=== PATIENT | male | born 1960 | race Caucasian/White ===

== ENCOUNTER 2017-12-02 11:47 | Outpatient (CLI) | payer MEDICARE, SELFPAY ==
[2017-12-02] VITALS (7 sets, daily range): BP systolic 103–127; BP diastolic 69–89; PULSE 66–80; RESP 16; TEMP 36.2–36.9; O2SAT 94–97; BMI 27.2
--- NOTE | 2017-12-02 | IMM_PTH ---
PATIENT: ELLIE MORGAN LOC: EN U#:[id number] AGE/SX: 57/M ROOM: RE12/02/[address]: Dr. Aneudy Moyer MD : 1960 BED: DIS: 12/02/2017 SPEC #: [id number] RECD: 12/03/17 15:31 STATUS: JESENIA TOM #: [id number] DANIEL: 12/02/17 00:[address]: Aneudy Moyer DEPT: IMMUNOHISTOCHEMISTRY RECD BY: Molly Matos ENTERED: 12/03/17 15:31 SP TYPE: IMMUNO OTHR DR: Dr. Joseph Oliveira MD Tissues: A - Stomach, NOS Procedures: H Pylori (initial) PHYSICIAN & INSTITUTION [place] [address] SPECIMEN INFORMATION: Tissue Source: A ? Antral biopsy Clinical Info: History of esophageal cancer; family history colon cancer Specimen Number: [id number] CPT code: 88218 METHODOLOGY: Deparaffinized sections of prefer/formalin-fixed tissue or PAP/DQ stained slides are incubated with monoclonal/polyclonal antibodies/oligonucleotide probes. Localization is made via biotin free immunoperoxidase method. Appropriate controls are performed and reacted as expected. Results on target cell population are indicated in the following table: RESULTS: ANTIBODY / CLONE RESULT Block A H Pylori (polyclonal) negative These tests were developed and their performance characteristics determined by [facility]. They may not have been cleared or approved by the U.S. Food and Drug Administration. The FDA has determined that such clearance or approval is not necessary. INTERPRETATION: A. Antral biopsy: Negative for Helicobacter pylori organisms. AM:melba 12/04/17
--- NOTE | 2017-12-02 | GASB_PTH ---
PATIENT: ELLIE MORGAN LOC: EN U#:[id number] AGE/SX: 57/M ROOM: RE12/02/[address]: Dr. Aneudy Moyer MD : 1960 BED: DIS: 12/02/2017 SPEC #: [id number] RECD: 12/02/17 14:52 STATUS: JESENIA TOM #: [id number] DANIEL: 12/02/17 00:[address]: Aneudy Moyer DEPT: SURGICAL PATHOLOGY RECD BY: Ras Guajardo ENTERED: 12/02/17 14:53 SP TYPE: Gastric Bx OTHR DR: Dr. Joseph Oliveira MD Tissues: A - Gastric mucous membrane B - Gastric mucous membrane C - Transverse colon D - Rectum, NOS Procedures: Special Stain Group I Surgery Specimen Level IV GMS Stain (control) HEADER OPERATION: EGD and colonoscopy PRE-OP DIAGNOSIS: History of esophageal cancer; family history of colon cancer TISSUE SUBMITTED: A ? Antral biopsy, B ? Anastomosis biopsy, C ? Mid transverse colon polyp, D ? Rectal polyps MICROSCOPIC DIAGNOSIS A. Gastric antrum, biopsy: Gastritis. B. Anastomotic site, biopsy: Fragments of benign squamous mucosa with focal acute inflammation. Negative for fungal organisms. C. Mid transverse colon polyp, biopsy: Tubular adenoma. D. Rectal polyps, biopsy: Fragments of tubular adenoma. AM:melba 12/03/17 COMMENT A. The results of immunohistochemistry for Helicobacter pylori will be reported separately ([id number]). B. GMS stain with matched control was used in the evaluation of this case. MICROSCOPIC DESCRIPTION Slides are reviewed. A. Sections show small collections and groups of plasma cells in the mucosa. Active inflammation is not present. These findings are consistent with mild chronic gastritis. GROSS DESCRIPTION A - Received in fixative is one container labeled with the patient's name and designated antral biopsy. The specimen consists of one irregular fragment of light jauregui soft tissue that measures 0.6 x 0.2 x 0.1 cm. The specimen is totally submitted in one cassette. B - Received in fixative is one container labeled with the patient's name and designated anastomosis biopsy. The specimen consists of two irregular fragments of light jauregui soft tissue that in aggregate measure 0.5 x 0.2 x 0.1 cm. The specimen is totally submitted in one cassette. C - Received in fixative is one container labeled with the patient's name and designated mid transverse colon. The specimen consists of one irregular fragment of light jauregui soft tissue that measures 0.6 x 0.3 x 0.1 cm. The specimen is totally submitted in one cassette. D - Received in fixative is one container labeled with the patient's name and designated rectal polyps. The specimen consists of multiple irregular fragments of light jauregui soft tissue that in aggregate measure 0.7 x 0.6 x 0.2 cm. The specimen is totally submitted in one cassette. / AM:melba 12/02/17 TC:3 CPT: 33659 x4, 36705
--- NOTE | 2017-12-02 12:22 | PCM.HP.BLA ---
History and Physical Date of Admission: 12/02/17 HISTORY AND PHYSICAL ? Lg Magdaleno 1960 ? REFERRING PHYSICIAN: ~~Joseph Oliveira MD ? CHIEF COMPLAINT: ~~colon consult ? HPI: The patient is a 57 year old male referred for endoscopy. ~Lg notes a personal history of colon polyps on several prior endoscopies. ~He states his last colonoscopy was 3-4 years ago at an outside facility with polyps found at that time, we do not currently have access to these records. ~The patient additionally has a personal history of esophageal cancer and states that in 2012 he underwent esophagectomy at [facility]. ~~He denies having any follow-up endoscopy since that time. ~~He notes a history of~heme positive stool test in the past but denies any visible blood in stools, dark stools or abdominal pain. ~Currently he notes reflux symptoms occasionally when laying flat. ~ ? In addition to history of esophageal cancer and colonic polyps, patient's past medical history is significant for hypertension, hyperlipidemia, diabetes mellitus and emphysema. ~He follows with Dr. Oliveira for his chronic medical conditions. ~He denies any cardiac issues. ~He denies chest pain or recent hospitalizations. ~Denies problems with sedation in the past. ? ? PAST MEDICAL HISTORY PAST MEDICAL HISTORY Diagnosis Date DM (diabetes mellitus) (HCC) ? HTN (hypertension) ? ? PAST SURGICAL HISTORY No past surgical history on file. ? ? CURRENT MEDICATIONS ? Current Outpatient Prescriptions: peg 3350-Electrolytes (GOLYTELY) 236-22.74-6.74 -5.86 gram suspension Take 4 L by mouth one time only. pioglitazone (ACTOS) 30 mg tablet Take 1 tablet by mouth once daily. tiotropium bromide (SPIRIVA RESPIMAT) 2.5 mcg/actuation mist Inhale 2 Puffs as instructed once daily. Inhale two puffs once daily. valsartan (DIOVAN) 80 mg tablet Take 1 tablet by mouth once daily. albuterol HFA (VENTOLIN HFA) 90 mcg/actuation inhaler Inhale 2 Puffs as instructed every 4 hours as needed for Wheezing/Shortness of Breath. Lovastatin 40 mg tablet Take 1 tablet by mouth daily at bedtime. For cholesterol. Nebulizer NEBULIZER FOR HOME USE. ~DX: J43.9 albuterol (PROVENTIL) 2.5 mg /3 mL (0.083 %) nebulizer solution Use 3 mL via nebulizer every 6 hours as needed for Wheezing/Shortness of Breath. Use over 5-15minutes. ? No current facility-administered medications for this visit. ? ALLERGIES: Review of patient's allergies indicates no known allergies. ? PERSONAL HISTORY: SOCIAL HISTORY Social History ~~Marital status: ~~~~~~~~~~~~Spouse name: ~~~~~~~~~~~~~~~~~~ ~~Years of education: ~~~~~~~~~~~~~~~~Number of children: ~~~~~~~~~~ ? Social History Main Topics ~~Smoking status: Current Every Day Smoker ~~~~~~~~~~~~~~~~~~~~~~~~~~~~~~~~~~~~~~~~~~~~~ ~~~~~Packs/day: 0.00 ~~~~~Years: 0.00 ~~~ ~~~~~Types: Cigars ~~Smokeless status: Never Used ~~~~~~~~~~~~~~~~~~~ ~~Alcohol use: No ~~~~~~~~~ ~~Drug use: No ~~~~~~~~~ ~~Sexual activity: Yes ~~~~~~~~~~~~~~Partners with: Female ? ? FAMILY HISTORY: FAMILY HISTORY FAMILY HISTORY Problem Relation Age of Onset Kidney Disease Mother 60 ? ? kidney failure Colon Cancer Father 60 ? ? dx with colon cancer at 60 years old Diabetes Maternal Grandmother ? Diabetes Paternal Grandmother ? ? REVIEW OF SYMPTOMS: ~~The review of systems data was entered by the nurse and reviewed by me ? Nursing Notes: Mireya Barrios LPN ~09/30/2017 ~4:15 PM ~Signed REVIEW OF SYSTEMS: ~~~~~General:~~~The patient denies fatigue, denies weight loss, denies weight gain, denies feeling hot, and denies feelings of cold. ~~~~~Eyes: ~The patient denies glaucoma, denies eye injury/surgery, wears glasses or contacts. ~~~~~Ear/Nose/Throat: ~The patient NOTES allergies, NOTES hayfever, denies ear infections, and denies bloody noses. ~~~~~Cardiovascular: ~The patient denies chest pain, denies heart disease, denies high blood pressure,denies cardiac stent, denies prior heart attack, denies irregular heart beat, denies high cholesterol, ~denies poor circulation, denies heart failure, other cardiac issues, denies claudication, denies cold feet, denies peripheral arterial stent. ~~~~~Respiratory: ~The patient denies tuberculosis, NOTES pneumonia, denies frequent cough, denies pulmonary embolism, NOTES shortness of breath, and denies coughing up blood. ~~~~~Gastrointestinal: ~The patient denies difficulty swallowing, denies acid reflux, denies ulcers, denies vomiting, denies jaundice/hepatitis, denies gallbladder problems, denies black or tarry stools, denies hemorrhoids, denies bleeding from rectum, denies diverticulitis, denies constipation, NOTES diarrhea, denies loss of stool control, and denies hernias. ~~~~~Kidney/Bladder: ~The patient denies kidney stones, denies urine infections, and denies bloody urine. ~~~~~Skin: ~The patient denies a history of skin cancer, denies bleeding/changing moles, and denies a history of skin rash. ~~~~~Neurologic: ~The patient denies a history of epilepsy/convulsions, NOTES headaches, denies head/spinal injuries, and denies stroke/TIA. ~~~~~Psychiatric: ~The patient denies psychiatric medications, denies depression, and denies voices, denies substance abuse. ~~~~~Endocrine: ~The patient denies thyroid disorders, NOTES diabetes, and denies hormonal problems. ~~~~~Hematologic: ~The patient denies a history of bruising, denies bleeding, and denies anemia, denies blood clots. ~~~~~Infections: ~The patient NOTES a history of measles and mumps, denies rheumatic fever, and denies sexually transmitted diseases. ~~~~~Musculoskeletal: ~The patient NOTES back pain/injury, denies back problems, NOTES sciatica, denies knee/foot trouble, denies arthritis, or denies gout. ? ? When was patient's last Mammogram screening? N/A ? ~Last Colonoscopy: ~2012 ? Mireya Anaya PA-C ? ?? PHYSICAL EXAMINATION: ? General: ~The patient is 57 year old male, well nourished, well hydrated in no acute distress. ~The patient is oriented to time, place, and person. ? VITALS: Blood pressure 160/70, pulse 100, weight 86.2 kg (190 lb).~Body mass index is 28.06 kg/(m^2).~ ? HEENT: ~Normal cephalic, ataumatic, pupils are equally round, sclera are anicteric, mucous membranes are moist, oropharynx is clear. ~Neck has no masses, asymmetry or lymphadenopathy. ~ ? Respiratory: ~Clear to auscultation and percussion. ~Normal respiratory excursion and pattern. ? Cardiac: ~Examination is regular rate and rhythm. ? Abdominal exam: ~Soft, nontender, ~with no palpable masses. ~No hepatosplenomegaly. ~No palpable hernias. ? Rectal exam: exam deferred ? Extremities: ~no clubbing, cyanosis or edema. ~No adenopathy. ? Other: ? LABORATORY VALUES: As Noted ? RADIOLOGIC STUDIES: ~As Noted ? ? Assessment ~ IMPRESSION: encounter for high-risk screening colonoscopy due to personal history of colonic polyps. ~S/p esophageal resection for esophageal cancer, recommend surveillance upper endoscopy ? PLAN: ~I will plan for upper and lower endoscopy with MAC.~~~We discussed the risks and benefits of the planned endoscopy. ~I have informed the patient that complications can occur including failure to complete the endoscopy and perforation. ~The patient had the opportunity to ask questions concerning the planned endoscopy. ~My staff has also explained the procedure to the patient in understandable terms and has given the patient printed material concerning the procedure. ~The patient freely consents to surgery. ? Records requested from prior endoscopy as well as operative report from 2013 for review ? I plan to use golytely bowel preparation for endoscopy ? I plan for monitored anesthetic care. ? Diagnoses: (Z85.01) History of esophageal cancer ~(primary encounter diagnosis) (J43.9) Pulmonary emphysema, unspecified emphysema type (HCC) (E11.8) Type 2 diabetes mellitus with complication, unspecified custodial insulin use status (HCC) (E78.5) Hyperlipidemia, unspecified hyperlipidemia type (Z86.010) History of colonic polyps (Z12.11) Encounter for screening for malignant neoplasm of colon ? My findings have been communicated to Dr. Oliveira~via shared medical record. ~This note will be forwarded to Dr. Joseph Oliveira MD. ? ?? Return to Clinic: The patient is instructed to follow-up with me 1 week post operatively. ? I spent 20~minutes in the visit, with more than 50% of the total sosa-or-zmoq time of the visit in counseling / coordination of care. ? ? Aneudy Moyer MD
--- NOTE | 2017-12-02 12:25 | HP.PCM_ITS ---
History and Physical Date of Admission: 12/02/17 HISTORY AND PHYSICAL ? Lg Magdaleno 1960 ? REFERRING PHYSICIAN: ~~Joseph Oliveira MD ? CHIEF COMPLAINT: ~~colon consult ? HPI: The patient is a 57 year old male referred for endoscopy. ~Lg notes a personal history of colon polyps on several prior endoscopies. ~He states his last colonoscopy was 3-4 years ago at an outside facility with polyps found at that time, we do not currently have access to these records. ~The patient additionally has a personal history of esophageal cancer and states that in 2012 he underwent esophagectomy at [facility]. ~~He denies having any follow- up endoscopy since that time. ~~He notes a history of~heme positive stool test in the past but denies any visible blood in stools, dark stools or abdominal pain. ~Currently he notes reflux symptoms occasionally when laying flat. ~ ? In addition to history of esophageal cancer and colonic polyps, patient's past medical history is significant for hypertension, hyperlipidemia, diabetes mellitus and emphysema. ~He follows with Dr. Oliveira for his chronic medical conditions. ~He denies any cardiac issues. ~He denies chest pain or recent hospitalizations. ~Denies problems with sedation in the past. ? ? PAST MEDICAL HISTORY PAST MEDICAL HISTORY Diagnosis Date ? DM (diabetes mellitus) (HCC) ? ? HTN (hypertension) ? ? PAST SURGICAL HISTORY No past surgical history on file. ? ? CURRENT MEDICATIONS ? Current Outpatient Prescriptions: peg 3350-Electrolytes (GOLYTELY) 236-22.74-6.74 -5.86 gram suspension Take 4 L by mouth one time only. pioglitazone (ACTOS) 30 mg tablet Take 1 tablet by mouth once daily. tiotropium bromide (SPIRIVA RESPIMAT) 2.5 mcg/actuation mist Inhale 2 Puffs as instructed once daily. Inhale two puffs once daily. valsartan (DIOVAN) 80 mg tablet Take 1 tablet by mouth once daily. albuterol HFA (VENTOLIN HFA) 90 mcg/actuation inhaler Inhale 2 Puffs as instructed every 4 hours as needed for Wheezing/Shortness of Breath. Lovastatin 40 mg tablet Take 1 tablet by mouth daily at bedtime. For cholesterol. Nebulizer NEBULIZER FOR HOME USE. ~DX: J43.9 albuterol (PROVENTIL) 2.5 mg /3 mL (0.083 %) nebulizer solution Use 3 mL via nebulizer every 6 hours as needed for Wheezing/Shortness of Breath. Use over 5-15minutes. ? No current facility-administered medications for this visit. ? ALLERGIES: Review of patient's allergies indicates no known allergies. ? PERSONAL HISTORY: SOCIAL HISTORY Social History ~~Marital status: ~~~~~~~~~~~~Spouse name: ~~~~~~~~~~~~~~~~~~ ~~Years of education: ~~~~~~~~~~~~~~~~Number of children: ~~~~~~~~~~ ? Social History Main Topics ~~Smoking status: Current Every Day Smoker ~~~~~~~~~~~~~~~~~~~~~~~~~~~~~~~~~~~~~ ~~~~~~~~ ~~~~~Packs/day: 0.00 ~~~~~Years: 0.00 ~~~ ~~~~~Types: Cigars ~~Smokeless status: Never Used ~~~~~~~~~~~~~~~~~~~ ~~Alcohol use: No ~~~~~~~~~ ~~Drug use: No ~~~~~~~~~ ~~Sexual activity: Yes ~~~~~~~~~~~~~~Partners with: Female ? ? FAMILY HISTORY: FAMILY HISTORY FAMILY HISTORY Problem Relation Age of Onset ? Kidney Disease Mother 60 ? ? kidney failure ? Colon Cancer Father 60 ? ? dx with colon cancer at 60 years old ? Diabetes Maternal Grandmother ? ? Diabetes Paternal Grandmother ? ? REVIEW OF SYMPTOMS: ~~The review of systems data was entered by the nurse and reviewed by me ? Nursing Notes: Mireya Barrios LPN ~09/30/2017 ~4:15 PM ~Signed REVIEW OF SYSTEMS: ~~~~~General:~~~The patient denies fatigue, denies weight loss, denies weight gain, denies feeling hot, and denies feelings of cold. ~~~~~Eyes: ~The patient denies glaucoma, denies eye injury/surgery, wears glasses or contacts. ~~~~~Ear/Nose/Throat: ~The patient NOTES allergies, NOTES hayfever, denies ear infections, and denies bloody noses. ~~~~~Cardiovascular: ~The patient denies chest pain, denies heart disease, denies high blood pressure,denies cardiac stent, denies prior heart attack, denies irregular heart beat, denies high cholesterol, ~denies poor circulation, denies heart failure, other cardiac issues, denies claudication, denies cold feet, denies peripheral arterial stent. ~~~~~Respiratory: ~The patient denies tuberculosis, NOTES pneumonia, denies frequent cough, denies pulmonary embolism, NOTES shortness of breath, and denies coughing up blood. ~~~~~Gastrointestinal: ~The patient denies difficulty swallowing, denies acid reflux, denies ulcers, denies vomiting, denies jaundice/hepatitis, denies gallbladder problems, denies black or tarry stools, denies hemorrhoids, denies bleeding from rectum, denies diverticulitis, denies constipation, NOTES diarrhea , denies loss of stool control, and denies hernias. ~~~~~Kidney/Bladder: ~The patient denies kidney stones, denies urine infections , and denies bloody urine. ~~~~~Skin: ~The patient denies a history of skin cancer, denies bleeding/ changing moles, and denies a history of skin rash. ~~~~~Neurologic: ~The patient denies a history of epilepsy/convulsions, NOTES headaches, denies head/spinal injuries, and denies stroke/TIA. ~~~~~Psychiatric: ~The patient denies psychiatric medications, denies depression , and denies voices, denies substance abuse. ~~~~~Endocrine: ~The patient denies thyroid disorders, NOTES diabetes, and denies hormonal problems. ~~~~~Hematologic: ~The patient denies a history of bruising, denies bleeding, and denies anemia, denies blood clots. ~~~~~Infections: ~The patient NOTES a history of measles and mumps, denies rheumatic fever, and denies sexually transmitted diseases. ~~~~~Musculoskeletal: ~The patient NOTES back pain/injury, denies back problems , NOTES sciatica, denies knee/foot trouble, denies arthritis, or denies gout. ? ? When was patient's last Mammogram screening? N/A ? ~Last Colonoscopy: ~2013 ? Mireya Anaya PA-C ? ?? PHYSICAL EXAMINATION: ? General: ~The patient is 57 year old male, well nourished, well hydrated in no acute distress. ~The patient is oriented to time, place, and person. ? VITALS: Blood pressure 160/70, pulse 100, weight 86.2 kg (190 lb).~Body mass index is 28.06 kg/(m^2).~ ? HEENT: ~Normal cephalic, ataumatic, pupils are equally round, sclera are anicteric, mucous membranes are moist, oropharynx is clear. ~Neck has no masses , asymmetry or lymphadenopathy. ~ ? Respiratory: ~Clear to auscultation and percussion. ~Normal respiratory excursion and pattern. ? Cardiac: ~Examination is regular rate and rhythm. ? Abdominal exam: ~Soft, nontender, ~with no palpable masses. ~No hepatosplenomegaly. ~No palpable hernias. ? Rectal exam: exam deferred ? Extremities: ~no clubbing, cyanosis or edema. ~No adenopathy. ? Other: ? LABORATORY VALUES: As Noted ? RADIOLOGIC STUDIES: ~As Noted ? ? Assessment ~ IMPRESSION: encounter for high-risk screening colonoscopy due to personal history of colonic polyps. ~S/p esophageal resection for esophageal cancer, recommend surveillance upper endoscopy ? PLAN: ~I will plan for upper and lower endoscopy with MAC.~~~We discussed the risks and benefits of the planned endoscopy. ~I have informed the patient that complications can occur including failure to complete the endoscopy and perforation. ~The patient had the opportunity to ask questions concerning the planned endoscopy. ~My staff has also explained the procedure to the patient in understandable terms and has given the patient printed material concerning the procedure. ~The patient freely consents to surgery. ? Records requested from prior endoscopy as well as operative report from 2013 for review ? I plan to use golytely bowel preparation for endoscopy ? I plan for monitored anesthetic care. ? 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 My findings have been communicated to Dr. Oliveira~via shared medical record. ~This note will be forwarded to Dr. Joseph Oliveira MD. ? ?? Return to Clinic: The patient is instructed to follow-up with me 1 week post operatively. ? I spent 20~minutes in the visit, with more than 50% of the total vcxf-vl-fzpt time of the visit in counseling / coordination of care. ? ? Aneudy Moyer MD
[2017-12-02 12:26] LABS: Bedside Glucose 235 mg/dL (70-110)
--- NOTE | 2017-12-02 17:49 | PCM.OPRPT ---
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 pylori and pathology, distal esophageal biopsy, transverse colon polyp, 2 sigmoid polyps sent together Description of Procedure: The patient was brought to the endoscopy suite. Sign in was performed verifying patient, site, planned procedure, critical nursing information, the patient was monitored with cardiac, pulse oximetric, and blood pressure monitoring devices. Monitored anesthetic care was provided for sedation. Following IV sedation and after the oropharynx was sprayed with Cetacaine spray, a video gastroscope was inserted in the oropharynx and advanced down the esophagus without difficulty. The scope was advanced through the stomach, through the pylorus through the duodenum to the proximal jejunum. the patient. Unknown history of esophagectomy. The scope was advanced through the esophagus without difficulty. The jejunum appeared unremarkable. The duodenum and straightened mild inflammation. The pylorus was widely open, consistent with the previous pyloroplasty with his previous surgical procedure. There was mild diffuse gastritis. Biopsies taken for H. pylori and path. The GE junction/anastomosis was noted at 20 cm. This was widely patent but there was irritation of the esophagus proximal to this anastomosis. A biopsy was taken of this area area as the scope was withdrawn. The more proximal esophagus appeared normal. The upper esophageal sphincter was noted to be at 15 cm The patient was positioned for colonoscopy. A digital rectal exam was performed which revealed a scant amount of stool in the vault. The video colonoscope was inserted and advanced to the cecum as verified by the ileocecal valve, cecal base anatomic features and palpation. as the scope was withdrawn. The cecum, ascending colon, proximal transverse colon was unremarkable. There was a polyp in the mid sigmoid colon which removed with snare polypectomy and sent to pathology. The scope was withdrawn. The remainder of the transverse colon, splenic flexure, descending colon is unremarkable. There are a few diverticula in the mid sigmoid. There were 2 polyps in the distal sigmoid. These were both removed with snare polypectomy and sent together to pathology. The scope was further withdrawn. There were 3 small nodules, possibly early polyps in the low rectum. These were ablated with cautery. The scope was retroflexed. There were no abnormalities at the anal verge. The video colonoscope was removed. The patient tolerated the procedure well and was brought to recovery in stable condition
--- NOTE | 2017-12-02 17:53 | OP.PCM_ITS ---
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 pylori and pathology, distal esophageal biopsy, transverse colon polyp, 2 sigmoid polyps sent together Description of Procedure: The patient was brought to the endoscopy suite. Sign in was performed verifying patient, site, planned procedure, critical nursing information, the patient was monitored with cardiac, pulse oximetric, and blood pressure monitoring devices. Monitored anesthetic care was provided for sedation. Following IV sedation and after the oropharynx was sprayed with Cetacaine spray , a video gastroscope was inserted in the oropharynx and advanced down the esophagus without difficulty. The scope was advanced through the stomach, through the pylorus through the duodenum to the proximal jejunum. the patient. Unknown history of esophagectomy. The scope was advanced through the esophagus without difficulty. The jejunum appeared unremarkable. The duodenum and straightened mild inflammation. The pylorus was widely open, consistent with the previous pyloroplasty with his previous surgical procedure. There was mild diffuse gastritis. Biopsies taken for H. pylori and path. The GE junction/anastomosis was noted at 20 cm. This was widely patent but there was irritation of the esophagus proximal to this anastomosis. A biopsy was taken of this area area as the scope was withdrawn. The more proximal esophagus appeared normal. The upper esophageal sphincter was noted to be at 15 cm The patient was positioned for colonoscopy. A digital rectal exam was performed which revealed a scant amount of stool in the vault. The video colonoscope was inserted and advanced to the cecum as verified by the ileocecal valve, cecal base anatomic features and palpation. as the scope was withdrawn. The cecum, ascending colon, proximal transverse colon was unremarkable. There was a polyp in the mid sigmoid colon which removed with snare polypectomy and sent to pathology. The scope was withdrawn. The remainder of the transverse colon, splenic flexure, descending colon is unremarkable. There are a few diverticula in the mid sigmoid. There were 2 polyps in the distal sigmoid. These were both removed with snare polypectomy and sent together to pathology. The scope was further withdrawn. There were 3 small nodules, possibly early polyps in the low rectum. These were ablated with cautery. The scope was retroflexed. There were no abnormalities at the anal verge. The video colonoscope was removed. The patient tolerated the procedure well and was brought to recovery in stable condition
== END 2017-12-02 14:44 | disposition home or self-care (01) ==
LOC: EN 11:47 → AC 11:49
PROVIDERS: Family Provider Family Medicine; PCP Family Medicine; Visit Provider Surgery
PROC: 0DJD8ZZ Inspection of Lower Intestinal Tract, Via Natural or Artificial Opening Endoscopic (ICD-10-PCS; CPT 45378; principal; 2017-12-02 13:00)
DX: Z12.11 Encounter for screening for malignant neoplasm of colon (principal); K29.70 Gastritis, unspecified, without bleeding; D12.3 Benign neoplasm of transverse colon; D12.8 Benign neoplasm of rectum; Z86.010 Personal history of colon polyps; Z85.01 Personal history of malignant neoplasm of esophagus; I10 Essential (primary) hypertension; E78.5 Hyperlipidemia, unspecified; E11.9 Type 2 diabetes mellitus without complications; F17.210 Nicotine dependence, cigarettes, uncomplicated; J43.9 Emphysema, unspecified; Z80.0 Family history of malignant neoplasm of digestive organs; Z79.51 Long term (current) use of inhaled steroids; Z79.84 Long term (current) use of oral hypoglycemic drugs; Z79.899 Other long term (current) drug therapy
CPT/HCPCS: 43239; 45380; 45384; 82962; 88305; 88312; 88342; J7120

== ENCOUNTER → 2018-01-13 15:56 | Outpatient (CLI) | payer MEDICARE, SELFPAY ==
[2018-01-13 17:02] LABS: ALB/GLOB Ratio 1.1 RATIO (0.9-2.4); AST(SGOT) 14 U/L (15-37); Alanine Aminotransfer ALT/SGPT 22 U/L (16-61); Albumin, Serum 3.6 g/dL (3.2-5.0); Alkaline Phosphatase 82 U/L (45-117); Anion Gap 8 (5-15); BUN 12 mg/dL (7-18); BUN/Creat Ratio 13.2 RATIO (10-20); Calcium,Total 8.8 mg/dL (8.5-10.1); Chloride 105 mmol/L (98-107); Cholesterol 106 mg/dL (200); Creatinine, Serum 0.91 mg/dL (0.70-1.30); EST Glomerular Filtration Rate 91 mL/min (>60); Est Glom Filt Rate - Afr Amer 110 mL/min (>60); Globulin 3.2 g/dL (2.2-4.2); Glucose 173 mg/dL (74-106); High Density Lipoprotein 53 mg/dL; Potassium 4.1 mmol/L (3.5-5.1); Protein, Total 6.8 g/dL (6.4-8.2); Sodium Level 140 mmol/L (136-145); Triglycerides 97 mg/dL; Very Low Density Lipoprotein 19 mg/dL (5-40)
[2018-01-13 17:17] LABS: Hemoglobin A1c 10.4 % (4.2-6.3)
== END ==
PROVIDERS: Family Provider Family Medicine; PCP Family Medicine; Visit Provider Family Medicine
DX: E11.8 Type 2 diabetes mellitus with unspecified complications (principal); E78.5 Hyperlipidemia, unspecified
CPT/HCPCS: 80053; 80061; 83036

== ENCOUNTER → 2018-05-21 16:31 | Outpatient (CLI) | payer MEDICARE, SELFPAY ==
[2018-05-21 16:53] LABS: Anion Gap 5 (5-15); BUN 8 mg/dL (7-18); BUN/Creat Ratio 10.1 RATIO (10-20); Calcium,Total 8.7 mg/dL (8.5-10.1); Chloride 106 mmol/L (98-107); Creatinine, Serum 0.79 mg/dL (0.70-1.30); EST Glomerular Filtration Rate 106 mL/min (>60); Est Glom Filt Rate - Afr Amer 128 mL/min (>60); Glucose 140 mg/dL (74-106); Potassium 3.2 mmol/L (3.5-5.1); Sodium Level 142 mmol/L (136-145)
[2018-05-21 17:03] LABS: Hemoglobin A1c 8.9 % (4.2-6.3)
== END ==
PROVIDERS: Family Provider Family Medicine; PCP Family Medicine; Visit Provider Family Medicine
DX: E11.8 Type 2 diabetes mellitus with unspecified complications (principal); I10 Essential (primary) hypertension
CPT/HCPCS: 80048; 83036

== ENCOUNTER → 2018-08-26 11:51 | Outpatient (CLI) | payer MEDICARE, SELFPAY ==
[2018-08-26 12:48] LABS: ALB/GLOB Ratio 1.2 RATIO (0.9-2.4); AST(SGOT) 20 U/L (15-37); Alanine Aminotransfer ALT/SGPT 29 U/L (16-61); Albumin, Serum 3.6 g/dL (3.2-5.0); Alkaline Phosphatase 76 U/L (45-117); Anion Gap 5 (5-15); BUN 12 mg/dL (7-18); BUN/Creat Ratio 13.8 RATIO (10-20); Calcium,Total 9.1 mg/dL (8.5-10.1); Chloride 105 mmol/L (98-107); Cholesterol 110 mg/dL (200); Creatinine, Serum 0.87 mg/dL (0.70-1.30); EST Glomerular Filtration Rate 96 mL/min (>60); Est Glom Filt Rate - Afr Amer 116 mL/min (>60); Globulin 3.1 g/dL (2.2-4.2); Glucose 150 mg/dL (74-106); High Density Lipoprotein 60 mg/dL; Potassium 4.1 mmol/L (3.5-5.1); Protein, Total 6.7 g/dL (6.4-8.2); Sodium Level 144 mmol/L (136-145); Triglycerides 62 mg/dL; Very Low Density Lipoprotein 12 mg/dL (5-40)
[2018-08-26 12:59] LABS: Hemoglobin A1c 8.3 % (4.2-6.3)
[2018-08-26 13:07] LABS: Microalbumin,Random Urine 72.1 mg/L (NO RANGE EST.); Microalbumin:Creatinine Ratio 61.1 mg/g CRE (<30 mg/g CRE)
== END ==
PROVIDERS: Family Provider Family Medicine; PCP Family Medicine; Referring Provider Family Medicine; Visit Provider Family Medicine
DX: E78.5 Hyperlipidemia, unspecified (principal); I10 Essential (primary) hypertension; E11.8 Type 2 diabetes mellitus with unspecified complications; Z79.899 Other long term (current) drug therapy
CPT/HCPCS: 80053; 80061; 82043; 82570; 83036

== ENCOUNTER → 2018-12-25 13:39 | Outpatient (CLI) | payer MEDICARE, SELFPAY ==
[2017-12-02 12:26] VITALS: BMI 27.2
[2018-12-25 14:07] LABS: ALB/GLOB Ratio 0.9 RATIO (0.9-2.4); AST(SGOT) 23 U/L (15-37); Alanine Aminotransfer ALT/SGPT 24 U/L (16-61); Albumin, Serum 3.6 g/dL (3.2-5.0); Alkaline Phosphatase 79 U/L (45-117); Anion Gap 7 (5-15); BUN 17 mg/dL (7-18); BUN/Creat Ratio 19.1 RATIO (10-20); Calcium,Total 8.9 mg/dL (8.5-10.1); Chloride 104 mmol/L (98-107); Cholesterol 101 mg/dL (200); Creatinine, Serum 0.89 mg/dL (0.70-1.30); EST Glomerular Filtration Rate 93 mL/min (>60); Est Glom Filt Rate - Afr Amer 113 mL/min (>60); Glucose 131 mg/dL (74-106); High Density Lipoprotein 58 mg/dL; Potassium 4.4 mmol/L (3.5-5.1); Protein, Total 7.6 g/dL (6.4-8.2); Sodium Level 138 mmol/L (136-145); Triglycerides 85 mg/dL; Very Low Density Lipoprotein 17 mg/dL (5-40)
[2018-12-25 14:14] LABS: Hemoglobin A1c 8.3 % (4.2-6.3)
== END ==
PROVIDERS: Family Provider Family Medicine; PCP Family Medicine; Referring Provider Family Medicine; Visit Provider Family Medicine
DX: E11.8 Type 2 diabetes mellitus with unspecified complications (principal); E78.5 Hyperlipidemia, unspecified
CPT/HCPCS: 80053; 80061; 83036

== ENCOUNTER → 2019-02-17 | Outpatient (CLI) | payer MEDICARE, SELFPAY ==
[2017-12-02 12:26] VITALS: BMI 27.2
[2019-02-17 11:42] LABS: Anion Gap 3 (5-15); BUN 15 mg/dL (7-18); BUN/Creat Ratio 18.5 RATIO (10-20); Calcium,Total 8.9 mg/dL (8.5-10.1); Chloride 106 mmol/L (98-107); Creatinine, Serum 0.81 mg/dL (0.70-1.30); EST Glomerular Filtration Rate 103 mL/min (>60); Est Glom Filt Rate - Afr Amer 125 mL/min (>60); Glucose 115 mg/dL (74-106); Potassium 4.2 mmol/L (3.5-5.1); Sodium Level 139 mmol/L (136-145)
[2019-02-17 11:48] LABS: Hemoglobin A1c 7.5 % (4.2-6.3)
== END | disposition home or self-care (01) ==
PROVIDERS: Family Provider Family Medicine; PCP Family Medicine; Referring Provider Family Medicine; Visit Provider Family Medicine
DX: E11.8 Type 2 diabetes mellitus with unspecified complications (principal)
CPT/HCPCS: 80048; 83036

== ENCOUNTER 2019-08-04 17:50 | Emergency (ER) | payer MEDICARE, SELFPAY ==
[2019-08-04] VITALS (7 sets, daily range): BP systolic 130–140; BP diastolic 37–71; PULSE 75–94; RESP 16–25; TEMP 36.8; O2SAT 95–100; BMI 22.8
--- NOTE | 2019-08-04 18:20 | RAD_ITS ---
STUDY: X-RAY CHEST REASON FOR EXAM: Male, 59 years old. Cough. TECHNIQUE: Single AP portable view of the chest. COMPARISON: Chest, February 06, 2016. FINDINGS: Lungs are well expanded. There is minimal atelectasis versus infiltrate along the right diaphragmatic margin. Lungs appear otherwise clear. There is no demonstrated pleural abnormality. Normal size heart. Normal mediastinum and leilani. Normal visualized pulmonary arteries. Normal visualized aortic arch and descending thoracic aorta. Normal visualized thoracic spine. There is degenerative osteoarthritis of the bilateral shoulders. There is no demonstrated abnormality of the visualized soft tissue structures of the upper abdomen. RAD/Chest 1 View (Portable) IMPRESSION: Question right basilar atelectasis versus early infiltrate. Electronically Signed: Ankit Stanley DO at 18:39 EDT Tel [phone], Service support ,
[2019-08-04] MEDS: Ipratropium/Albuterol Sulfate 3 ML AMPUL.NEB INHALATION (18:29)
[2019-08-04] MEDS: Albuterol 2.5 MG/3 ML VIAL.NEB. INHALATION ×2 (18:29)
[2019-08-04] MEDS: MethylPREDNISolone 125 MG/2 ML Vial IV (18:43)
[2019-08-04 18:46] LABS: Absolute Lymphocyte Count 0.88 X10^3/uL (0.83-4.51); Absolute Neutrophil Count 11.1 X10^3/uL (2.0-7.7); Basophil# 0.02 X10^3/uL; Basophil% 0.2 % (0-1); Hematocrit 17.8 % (40-54); Lymphocyte # 0.88 X10^3/ul (4.0); Lymphocyte % 6.9 % (19-41); Mean Corp Hgb Conc 28.1 g/dL (32-36); Mean Corpuscular Hgb 19.4 pg (27.0-32.0); Mean Platelet Vol. 8.1 fl (6.2-12.0); Monocyte# 0.66 X10^3/uL; Monocyte% 5.2 % (0-10); NRBC Flagged by Analyzer 0.4 % (0-5); Neutrophil # 11.05 X10^3/uL (2.7-7.7); Neutrophil % 86.6 % (47-70); POSITIVE COUNT YES; Platelet Count 563 K/mm3 (150-450); RBC Distribution Width CV 18.3 % (11.6-14.6); Red Blood Count 2.58 M/mm3 (4.6-6.2); White Blood Count 12.8 K/mm3 (4.4-11.0)
[2019-08-04 18:59] LABS: Prothrombin Time (Protime)PT. 13.4 SECONDS (11.7-14.9)
[2019-08-04 19:00] LABS: Partial Thromboplast Time 32.6 Seconds (24.1-36.2)
[2019-08-04 19:01] LABS: Differential Indicated SCAN CRITERIA MET
[2019-08-04 19:02] LABS: AST(SGOT) 17 U/L (15-37); Alanine Aminotransfer ALT/SGPT 27 U/L (16-61); Albumin, Serum 2.5 g/dL (3.2-5.0); Alkaline Phosphatase 91 U/L (45-117); Anion Gap 7 (5-15); BUN 24 mg/dL (7-18); BUN/Creat Ratio 21.2 RATIO (10-20); Bilirubin, Direct 0.06 mg/dL (0.00-0.30); Calcium,Total 8.5 mg/dL (8.5-10.1); Chloride 102 mmol/L (98-107); Creatinine, Serum 1.13 mg/dL (0.70-1.30); EST Glomerular Filtration Rate 70 mL/min (>60); Est Glom Filt Rate - Afr Amer 85 mL/min (>60); Estimated Creatinine Clearance 69.13 ml/min; Globulin 3.8 g/dL (2.2-4.2); Glucose 307 mg/dL (74-106); Potassium 4.2 mmol/L (3.5-5.1); Protein, Total 6.3 g/dL (6.4-8.2); Sodium Level 138 mmol/L (136-145)
[2019-08-04 19:27] LABS: Anisocytosis 1+; Hypochromasia 3+; Schistocytes RARE
[2019-08-04 20:42] LABS: Lactic Acid 3.2 mmol/L (0.4-2.0)
--- NOTE | 2019-08-04 20:44 | ED.RN ---
dr. yang informed of lactic 3.2.
[2019-08-04] MEDS: 0.9% Normal Saline 1,000 ML 200 ML IV (20:53)
--- NOTE | 2019-08-04 22:13 | ED.DCSUM_ITS ---
- ER Visit Summary Date of Service: 08/04/19 Chief Complaint: Cough History of Present Illness: The patient is a 59 M who tells me that for the past 3 weeks has had a cough. He was seen at an urgent care and given an antibiotic he returned several days later not improved and they gave him another antibioti c. That he was seen again on Saturday and had antibiotics changed again to Augmentin and Zithromax. He states his cough is no better. He continues to feel short of breath and weak. He does note some sputum production. He has a history of COPD and still smokes. He also has a history of esophageal cancer/gastric cancer with resection at [facility] [place]. Because he has been feeling so poorly he has been taking a lot of ibuprofen and he notes that his stool is black and diarrhea like. Physical Examination: Afebrile vital signs are stable Gen: Well-nourished well-developed Head: Normocephalic atraumatic Eyes: Perrl EOMI pale conjunctiva ENT: TMs clear no rhinorrhea dry mucous membranes Neck: Supple no lymphadenopathy no JVD nontender CVS: Regular rate rhythm no murmurs normal S1-S2 Respiratory: No distress patient has a faint expiratory wheeze and rhonchi. Moist cough. Chest nontender Abdomen: Soft nontender nondistended normal bowel sounds no masses Back: Nontender Extremity: Nontender no edema Skin: Patient is pale no rash Neuro: alert orientated ?3 CN II-XII intact normal strength sensation Psych: Normal affect normal mood Test Results: White count slightly elevated at 12. Hemoglobin is 5. Lactic acid is also elevated troponin negative. Chest x-ray shows a area in the right lung of atelectasis versus infiltrate. Emergency Department Course and Treatment: Patient received IV fluids. He also received Rocephin and azithromycin. Blood cultures were not obtained because the patient has been on multiple antibiotics for the past several weeks. I did not type and cross him as he will be transferred to [facility] [place] as that is where he had his esophagitis/stomach resection performed that and goal is to have the patient transferred before blood could be started. He has been accepted to [facility] [place] and [facility] is here to transport him. He remains hematologically stable. Impression: 1. Acute upper GI bleed 2. Anemia requiring transfusion 3. Pneumonia This note was generated with [employer] software. It may contain incorrect words, spelling, and punctuation that were not noted in review of the chart prior to signing ED Disposition - Plan for ED Patient: Referrals: Joseph Oliveira MD [Primary Care Provider] -
[2019-08-05 00:03] LABS: Reflex Lactate? Y
[2019-08-05 10:39] LABS: Pathologist Review Reviewed
== END 2019-08-04 23:30 | disposition short-term general hospital (02) ==
LOC: ED 18:34
PROVIDERS: Emergency Provider Emergency Medicine; Family Provider Family Medicine; PCP Family Medicine
DX: J18.9 Pneumonia, unspecified organism (principal); K92.2 Gastrointestinal hemorrhage, unspecified; D64.9 Anemia, unspecified; Z85.01 Personal history of malignant neoplasm of esophagus; Z85.00 Personal history of malignant neoplasm of unspecified digestive organ; F17.200 Nicotine dependence, unspecified, uncomplicated
CPT/HCPCS: 71045; 80048; 80076; 83605; 84484; 85025; 85610; 85730; 94640; 96365; 96367; 96368; 96375; 99285; J7030; J7050; A4216; J0696; J3490